=== PATIENT | female | born 1995 | race Caucasian/White ===

== ENCOUNTER 2016-08-20 20:05 | Emergency (ER) | payer OTHER ==
[2016-08-20 20:10] VITALS: BP 120/79; BMI 21.9
--- NOTE | 2016-08-20 20:31 | DR.GENAD ---
HPI - PCP Primary Care Physician: brien Davies HPI Comment HPI Comment: GETTING WORSE. - Complaint/Symptoms Chief Complaint Doctors Comments: LOWER ABDOMINAL PAIN, NAUSEA, VOMITING AND DIARRHEA TIMES ONE DAY. Chief Complaint:: pt states" i'm having lower abd cramps and a headache and i vomited x 1 " - Nurses notes reviewed Nurses Notes Review: Yes - Source History Provided: Patient - Mode of Arrival Mode of Arrival: Ambulatory - Timing Onset of Chief Complaint: 08/20/16 Came on: Suddenly - Duration Duration: Constant Duration: Days - Severity Severity: Moderate PMH - PMH Past Medical History: Yes Past Medical History: Seizures Past Surgical History: No Surgical History: No History - Family History History of Family Medical Conditions: Yes Family Medical History: Diabetes Mellitus, Hypertension - Social History Type of Tobacco Use: Cigarettes Does any household member use tobacco: No Alcohol Use: Occasionally Do you use any recreational Drugs:: No Lives With: Family Lives Where: Home - infectious screening In the last 2 months have you had wt loss of >10#?: NO Have you had fever, night sweats or hemotysis?: No Have you traveled outside the country in the last 6 months?: No Isolation: Standard ROS - Review of Systems Constitutional: Fatigue. negative: Chills, Fever Eyes: No Symptoms Reported ENTM: No Symptoms Reported Respiratoy: No Symptoms Reported Cardiovascular: No Symptoms Reported Gastrointestinal/Abdominal: Abdominal Pain, Nausea, Vomiting Genitourinary: Pain. negative: Dysuria, Frequency, Hematuria Neurological: Weakness Musculoskeletal: Muscle Pain Integumentary: No Symptoms Reported Hematologic/Lymphatic: No Symptoms Reported Endocrine: No Symptoms Reported All Other Systems: Reviewed and Negative PE - Vital Signs Vitals: Temperature 99 F Pulse Rate 91 Respiratory Rate 18 Blood Pressure [Right Arm] 103/59 Blood Pressure [Left Arm] 104/60 Blood Pressure 120/79 O2 Sat by Pulse Oximetry 99 - General Limitations: No Limitations General Appearance: Alert - Head Head Exam: Normal Inspection - Eyes Eye exam: Normal Appearance - ENT ENT Exam: Normal External Ear Exam External Ear Exam: Normal External Inspection TM/Canal Exam: Bilateral Normal Nose Exam: Normal Nose Exam Mouth Exam: Normal Inspection Throat Exam: Normal Inspection - Neck Neck Exam: Trachea Midline - Chest Chest Inspection: Symmetric Chest Wall Rise - Respiratory Respiratory Exam: Normal Lung Sounds Bilat Respiratory Exam: Bilateral Clear to Auscultation - Cardiovascular Cardiovascular Exam: Regular Rate, Normal Rhythm, Normal Heart Sounds - Abdominal Exam Abdominal Exam: Normal Bowel Sounds, Soft, Tenderness Abdominal Tenderness: RLQ, LLQ, Suprapubic, Moderate - Extremities Extremities Exam: Normal Inspection - Back Back Exam: Normal Inspection - Neurologic Neurological Exam: Alert, Oriented X3 - Psychiatric Psychiatric Exam: Anxious - Skin Skin Exam: Normal Color MDM - Differential Diagnosis Differential Diagnosis: ABDOMINAL PAIN, UTI, DEHYDRATION, KIDNEY STONE, BOWEL OBSTRUCTION Course - Treatment Treatment: SEE ORDERS - Education/Counseling Education/Counseling: Patient, Education Educated On: Treatment, Diagnosis, Needs for Follow Up ROR - Labs Reviewed Laboratory Results Reviewed?: Yes Result Diagrams: 08/20/16 20:55 08/20/16 20:55 Laboratory: WBC 7.1 X10^3/uL (3.6-10.0) 08/20/16 20:55 RBC 4.70 X10^6/uL (3.5-5.4) 08/20/16 20:55 Hgb 13.8 g/dL (12.0-16.0) 08/20/16 20:55 Hct 40.2 % (36.0-47.0) 08/20/16 20:55 MCV 85.5 fL (80.0-100.0) 08/20/16 20:55 MCH 29.3 pg (27.0-34.0) 08/20/16 20:55 MCHC 34.3 g/dL (33.0-35.0) 08/20/16 20:55 RDW 12.7 % (11.6-16.5) 08/20/16 20:55 Plt Count 215 X10^3/uL (150.0-450.0) 08/20/16 20:55 MPV 8.0 fL (7.4-11.0) 08/20/16 20:55 Neut % 58.2 % (42.0-75.0) 08/20/16 20:55 Lymph % 36.0 % (21.0-51.0) 08/20/16 20:55 [place] % 4.7 % (0.0-13.0) 08/20/16 20:55 Eos % 0.6 % (0.9-2.9) L 08/20/16 20:55 Baso % 0.5 % (0.2-1.0) 08/20/16 20:55 Neut # 4.1 x10^3/uL (2.2-4.8) 08/20/16 20:55 Lymph # 2.5 X10^3/uL (1.3-2.9) 08/20/16 20:55 [place] # 0.3 x10^3/uL (0.3-0.8) 08/20/16 20:55 Eos # 0.0 x10^3/uL (0.0-0.2) 08/20/16 20:55 Baso # 0.0 X10^3/uL (0.0-0.1) 08/20/16 20:55 Absolute Nucleated RBC 0.1 /100WBC 08/20/16 20:55 Sodium 142 mmol/L (136-145) 08/20/16 20:55 Corrected Sodium TNP 08/20/16 20:55 Potassium 3.4 mmol/L (3.5-5.1) L 08/20/16 20:55 Chloride 105 mmol/L (98-107) 08/20/16 20:55 Carbon Dioxide 25.2 mmol/L (21-32) 08/20/16 20:55 BUN 12 mg/dL (7-18) 08/20/16 20:55 Creatinine 0.87 mg/dL (0.55-1.02) 08/20/16 20:55 Est GFR (MDRD) Af Amer > 60 (>60) 08/20/16 20:55 Est GFR (MDRD) Non-Af > 60 (>60) 08/20/16 20:55 Glucose 91 mg/dL (65-99) 08/20/16 20:55 Calcium 8.6 mg/dL (8.5-10.1) 08/20/16 20:55 Corrected Calcium TNP 08/20/16 20:55 Total Bilirubin 0.30 mg/dL (0.2-1.0) 08/20/16 20:55 AST 13 Units/L (15-37) L 08/20/16 20:55 ALT 28 Units/L (12-78) 08/20/16 20:55 Alkaline Phosphatase 49 Units/L (46-116) 08/20/16 20:55 Total Protein 7.9 g/dL (6.4-8.2) 08/20/16 20:55 Albumin 4.1 g/dL (3.4-5.0) 08/20/16 20:55 Globulin 3.8 g/dL (2.5-4.5) 08/20/16 20:55 Albumin/Globulin Ratio 1.1 Ratio (1.1-2.1) 08/20/16 20:55 Amylase 48 Units/L (25-115) 08/20/16 20:55 Lipase 164 Units/L (73-393) 08/20/16 20:55 HCG, Qual Negative <10 mIU/mL 08/20/16 20:55 Specimen Type Clean catch urine 08/20/16 20:55 Urine Color Yellow (YELLOW) 08/20/16 20:55 Urine Appearance Clear (CLEAR) 08/20/16 20:55 Urine pH 7.0 (5.0 - 8.0) 08/20/16 20:[address] 1.010 (1.000-1.030) 08/20/16 20:55 Urine Protein Negative (NEGATIVE) 08/20/16 20:55 Urine Glucose (UA) Negative (NEGATIVE) 08/20/16 20:55 Urine Ketones Negative (NEGATIVE) 08/20/16 20:55 Urine Occult Blood 2+ (NEGATIVE) 08/20/16 20:55 Urine Nitrite Negative (NEGATIVE) 08/20/16 20:55 Urine Bilirubin Negative (NEGATIVE) 08/20/16 20:55 Urine Urobilinogen Normal (NORMAL) 08/20/16 20:55 Ur Leukocyte Esterase Negative (NEGATIVE) 08/20/16 20:55 Urine RBC 0-3 /HPF (NEGATIVE) 08/20/16 20:55 Urine WBC 0-2 /HPF (NEGATIVE) 08/20/16 20:55 Ur Squamous Epith Cells Rare /HPF (NEGATIVE) 08/20/16 20:55 Urine Bacteria Trace /HPF (NEGATIVE) 08/20/16 20:55 Ur Culture Indicated? No/not indicated 08/20/16 20:55 - XRAY XRAY Interpreted by: Self (REPORT NOT READY. PATIENT WANT TO GO HOME. DISCHARGE WITHOUT REPORT WAS AVAILABLE.) - Diagnosis Discharge Problem: Gastroenteritis Abdominal pain Qualifiers: Abdominal location: generalized Qualified Code(s): R10.84 - Generalized abdominal pain - Discharge Plan Disposition: HOME, SELF-CARE Condition: Stable Prescriptions: Dicyclomine HCl [Bentyl Cap 10 mg] 10 mg PO TID PRN #15 cap PRN Reason: Diphenoxylate/Atropine [Lomotil] 1 tab PO TID PRN #12 tab PRN Reason: Ondansetron HCl [Zofran Tab 4 mg] 4 mg PO Q8H PRN #12 tab PRN Reason: Nausea/Vomiting - Follow ups/Referrals Follow ups/Referrals: Clarissa MESA [Primary Care Provider] - 3 days - Instructions Instructions: Abdominal Pain, Adult, [id number], Viral Gastroenteritis, Adult , [id number] Additional Instructions: RETURN TO ED IF WORSE.
[2016-08-20 21:09] LABS: BILIRUBIN,URINE NEGATIVE (NEGATIVE); BLOOD/HEMOGLOBIN,URINE 2+ (NEGATIVE); GLUCOSE, URINE NEGATIVE (NEGATIVE); KETONES,URINE NEGATIVE (NEGATIVE); LEUKOCYTE ESTERASE ,URINE NEGATIVE (NEGATIVE); NITRITES,URINE NEGATIVE (NEGATIVE); PROTEIN,URINE NEGATIVE (NEGATIVE); UROBILINOGEN,URINE NORMAL (NORMAL)
[2016-08-20 21:10] LABS: BASOPHILS % (AUTO) 0.5 % (0.2-1.0); EOSINOPHILS % (AUTO) 0.6 % (0.9-2.9); HEMATOCRIT 40.2 % (36.0-47.0); HEMOGLOBIN 13.8 g/dL (12.0-16.0); LYMPHOCYTES # (AUTO) 2.5 X10^3/uL (1.3-2.9); MEAN CORPUSCULAR HEMOGLOBIN 29.3 pg (27.0-34.0); MEAN CORPUSCULAR HGB CONC 34.3 g/dL (33.0-35.0); MEAN CORPUSCULAR VOLUME 85.5 fL (80.0-100.0); MONOCYTES # (AUTO) 0.3 x10^3/uL (0.3-0.8); MONOCYTES % (AUTO) 4.7 % (0.0-13.0); NEUTROPHILS # (AUTO) 4.1 x10^3/uL (2.2-4.8); NEUTROPHILS % (AUTO) 58.2 % (42.0-75.0); PLATELET COUNT 215 X10^3/uL (150.0-450.0); RED CELL DISTRIBUTION WIDTH 12.7 % (11.6-16.5); WHITE BLOOD COUNT 7.1 X10^3/uL (3.6-10.0)
[2016-08-20 21:16] LABS: APPEARANCE,URINE CLEAR (CLEAR); BACTERIA,URINE TRACE /HPF (NEGATIVE); COLOR,URINE YELLOW (YELLOW); RBC,URINE 0-3 /HPF (NEGATIVE); SQUAMOUS EPITHELIAL CELL,UR RARE /HPF (NEGATIVE)
[2016-08-20 21:19] LABS: ALANINE AMINOTRANSFERASE 28 Units/L (12-78); ALBUMIN 4.1 g/dL (3.4-5.0); ALKALINE PHOSPHATASE 49 Units/L (46-116); AMYLASE 48 Units/L (25-115); ASPARTATE AMINO TRANSFERASE 13 Units/L (15-37); BLOOD UREA NITROGEN 12 mg/dL (7-18); CALCIUM 8.6 mg/dL (8.5-10.1); CARBON DIOXIDE 25.2 mmol/L (21-32); CHLORIDE 105 mmol/L (98-107); CREATININE 0.87 mg/dL (0.55-1.02); GLUCOSE 91 mg/dL (65-99); LIPASE 164 Units/L (73-393); SODIUM 142 mmol/L (136-145); TOTAL PROTEIN 7.9 g/dL (6.4-8.2); eGFR BLACK RACES > 60 (>60); eGFR NON BLACK RACES > 60 (>60)
[2016-08-20 22:09] LABS: SERUM PREGNANCY TEST, QUAL NEGATIVE <10 mIU/mL
--- NOTE | 2016-08-21 00:16 | RAD ---
Acute abdominal series Indication:Abdominal pain Comparison: None available Findings: The trachea is midline. The cardiac silhouette is unremarkable. The lungs are clear without focal infiltrate or effusion. The bony thorax is unremarkable. Flat and upright evaluation of the abdomen demonstrates a normal bowel gas pattern. The tiny round calcific densities noted lateral to the right L3 transverse process appears to be more inferior and lateral in position than the expected course of the renal fossa however correlation with urinalysis is recommended to exclude nephrolithiasis.. The bony structures are grossly intact. IMPRESSION: 1. No acute cardiopulmonary disease. 2. Calcific density lateral to the right L3 transverse process appears to be more inferior and late ral in position than expected course of the renal fossa however correlation with urinalysis is recom mended to exclude nephrolithiasis. 3. Normal bowel gas pattern. Reported By:
== END 2016-08-20 23:24 | disposition home or self-care (01) ==
LOC: ER 20:14
DX: K52.89 Other specified noninfective gastroenteritis and colitis (principal); R10.84 Generalized abdominal pain; R14.3 Flatulence
CPT/HCPCS: 36415; 74022; 80053; 81001; 82150; 83690; 84703; 85025; 99283

== ENCOUNTER → 2016-11-20 | Outpatient (CLI) | payer OTHER | LOC: RT 16:53 | PROVIDERS: ATTEND Psychiatry & Neurology Neurology | DX: G40.B09 Juvenile myoclonic epilepsy, not intractable, without status epilepticus (principal) | CPT/HCPCS: 95819 ==

== ENCOUNTER → 2016-11-22 | Outpatient (CLI) | payer OTHER | LOC: LAB 10:54 | PROVIDERS: ATTEND Psychiatry & Neurology Neurology | DX: R56.9 Unspecified convulsions (principal) | CPT/HCPCS: 87476 ==

== ENCOUNTER 2017-01-27 15:37 | Emergency (ER) | payer OTHER ==
[2017-01-27 15:42] VITALS: BP 102/69; BMI 21.4
[2017-01-27] MEDS ORDERED: PHENERGAN INJ 25 MG IM ONE (19:26)
[2017-01-27] MEDS ORDERED: PHENERGAN INJ 25 MG ONE (19:31)
--- NOTE | 2017-01-27 19:32 | DR.GENAD ---
HPI - PCP Primary Care Physician: BONITA ESPITIA Comment HPI Comment: Nausea - Complaint/Symptoms Chief Complaint Doctors Comments: Nausea onset early this afternoon. She denies abd. pain. She did not eat anything unusual. She feels better now. Chief Complaint:: VOMITING,CRAMPING,FEVER,HEADACHE - Nurses notes reviewed Nurses Notes Review: Yes - Source History Provided: Patient - Mode of Arrival Mode of Arrival: Ambulatory - Timing Onset of Chief Complaint: 01/27/17 Came on: Suddenly - Duration Duration: Hours - Modifying Factors Worsens:: Nothing Improves:: Nothing PMH - PMH Past Medical History: Yes Past Medical History: Seizures Past Surgical History: No Surgical History: No History - Family History History of Family Medical Conditions: Yes Family Medical History: Diabetes Mellitus, Hypertension - Social History Does any household member use tobacco: No Alcohol Use: None Do you use any recreational Drugs:: No Lives With: Alone Lives Where: Home - infectious screening In the last 2 months have you had wt loss of >10#?: NO Have you had fever, night sweats or hemotysis?: No Have you traveled outside the country in the last 6 months?: No Isolation: Standard ROS - Review of Systems Constitutional: No Symptoms Reported Eyes: No Symptoms Reported ENTM: No Symptoms Reported Respiratoy: No Symptoms Reported Cardiovascular: No Symptoms Reported Gastrointestinal/Abdominal: Nausea, Vomiting (x 1) Genitourinary: No Symptoms Reported Neurological: No Symptoms Reported Musculoskeletal: No Symptoms Reported Integumentary: No Symptoms Reported Hematologic/Lymphatic: No Symptoms Reported Endocrine: No Symptoms Reported Psychiatric: No Symptoms Reported All Other Systems: Reviewed and Negative PE - Vital Signs Vitals: Temperature 98.2 F Pulse Rate 84 Respiratory Rate 20 Blood Pressure [Right Arm] 103/59 Blood Pressure [Left Arm] 104/60 Blood Pressure 102/69 O2 Sat by Pulse Oximetry 100 - General Limitations: No Limitations General Appearance: Alert, In No Apparent Distress - Head Head Exam: Normal Inspection - Eyes Eye exam: Normal Appearance - ENT ENT Exam: Normal Exam External Ear Exam: Normal External Inspection TM/Canal Exam: Bilateral Normal Nose Exam: Normal Nose Exam Mouth Exam: Normal Inspection Throat Exam: Normal Inspection - Neck Neck Exam: Normal Inspection - Chest Chest Inspection: Normal Inspection - Respiratory Respiratory Exam: Normal Lung Sounds Bilat Respiratory Exam: Bilateral Clear to Auscultation - Cardiovascular Cardiovascular Exam: Regular Rate, Normal Rhythm - Abdominal Exam Abdominal Exam: Normal Inspection, Normal Bowel Sounds, Soft - Extremities Extremities Exam: Normal Inspection - Back Back Exam: Normal Inspection - Neurologic Neurological Exam: Alert, Oriented X3 - Psychiatric Psychiatric Exam: Normal Affect, Normal Mood - Skin Skin Exam: Warm, Dry, Intact, Normal Color Course - Reevaluation 1st: Resolved - Diagnosis Discharge Problem: Nausea & vomiting - Discharge Plan Disposition: HOME, SELF-CARE Condition: Stable - Follow ups/Referrals Follow ups/Referrals: Clarissa MESA [Primary Care Provider] - 3 days - Instructions
== END 2017-01-27 19:40 | disposition home or self-care (01) ==
LOC: ER 15:52
DX: R11.2 Nausea with vomiting, unspecified (principal)
CPT/HCPCS: 99281; 99282; J2550

== ENCOUNTER 2017-06-27 18:00 | Emergency (ER) | payer OTHER ==
[2017-06-27 18:07] VITALS: BP 101/62; BMI 22.6
--- NOTE | 2017-06-27 20:19 | DR.GENAD ---
HPI - PCP Primary Care Physician: brien - Complaint/Symptoms Chief Complaint:: patient stated she has been having stomach pain all week the vomiting started this morning with the fever. - Nurses notes reviewed Nurses Notes Review: Yes - Source History Provided: Patient - Mode of Arrival Mode of Arrival: Ambulatory - Timing Onset of Chief Complaint: 06/27/17 Came on: Suddenly - Duration Duration: Constant Duration: Days - Severity Severity: Moderate PMH - PMH Past Medical History: Yes Past Medical History: Seizures Past Surgical History: No Surgical History: No History - Family History History of Family Medical Conditions: Yes Family Medical History: Diabetes Mellitus, Hypertension - Social History Does patient currently use any type of tobacco product: No Have you used tobacco products in the last 12 months: No Type of Tobacco Use: None Does any household member use tobacco: No Alcohol Use: None Do you use any recreational Drugs:: No Lives With: Family Lives Where: Home - infectious screening In the last 2 months have you had wt loss of >10#?: NO Have you had fever, night sweats or hemotysis?: No Have you traveled outside the country in the last 6 months?: No Isolation: Standard ROS - Review of Systems Constitutional: No Symptoms Reported Eyes: No Symptoms Reported ENTM: No Symptoms Reported Respiratoy: No Symptoms Reported Cardiovascular: No Symptoms Reported Gastrointestinal/Abdominal: No Symptoms Reported Genitourinary: No Symptoms Reported Neurological: No Symptoms Reported Musculoskeletal: No Symptoms Reported Integumentary: No Symptoms Reported Hematologic/Lymphatic: No Symptoms Reported Endocrine: No Symptoms Reported All Other Systems: Reviewed and Negative PE - Vital Signs Vitals: Temperature 99.2 F Pulse Rate 70 Respiratory Rate 16 Blood Pressure [Right Arm] 103/59 Blood Pressure [Left Arm] 104/60 Blood Pressure 101/62 O2 Sat by Pulse Oximetry 99 - General Limitations: No Limitations General Appearance: Alert - Head Head Exam: Normal Inspection - Eyes Eye exam: Normal Appearance - ENT ENT Exam: Normal External Ear Exam External Ear Exam: Normal External Inspection TM/Canal Exam: Bilateral Normal Nose Exam: Normal Nose Exam Mouth Exam: Normal Inspection Throat Exam: Normal Inspection - Neck Neck Exam: Normal Inspection - Chest Chest Inspection: Symmetric Chest Wall Rise - Respiratory Respiratory Exam: Normal Lung Sounds Bilat Respiratory Exam: Bilateral Clear to Auscultation - Cardiovascular Cardiovascular Exam: Regular Rate, Normal Rhythm, Normal Heart Sounds - Abdominal Exam Abdominal Exam: Normal Bowel Sounds, Soft, Tenderness - Extremities Extremities Exam: Normal Inspection - Back Back Exam: Normal Inspection - Neurologic Neurological Exam: Alert, Oriented X3 - Skin Skin Exam: Normal Color ROR - Labs Reviewed Laboratory: Influenza Type A (PCR) Negative (NEGATIVE) 06/27/17 19:32 Influenza Type B (PCR) Negative (NEGATIVE) 06/27/17 19:32 S. pyogenes (TEM-PCR) Not detected (NOT DETECT) 06/27/17 19:32 - Discharge Plan Condition: Stable - Follow ups/Referrals Follow ups/Referrals: Clarissa MESA [Primary Care Provider] - 1 day - Instructions Instructions: Abdominal Pain, Adult, [id number], Nausea and Vomiting, Adult, [id number]
== END 2017-06-27 20:36 | disposition home or self-care (01) ==
LOC: ER 18:10
DX: R10.84 Generalized abdominal pain (principal); R11.10 Vomiting, unspecified; R50.9 Fever, unspecified
CPT/HCPCS: 87502; 87651; 99282

== ENCOUNTER 2017-07-10 17:52 | Emergency (ER) | payer OTHER ==
[2017-07-10 18:12] VITALS: BMI 22.6
--- NOTE | 2017-07-10 18:20 | DR.CP ---
HPI - Time Seen Time seen: 18:10 - PCP Primary Care Physician: BONITA BAINS - HPI Comment HPI Comment: WAS PLAYING WITH CHILD AND STARTED TO HAVE MID CHEST PAIN GOING INTO LEFT CHEST WITH SOB. PAIN DECREASING BUT PRESENT IN ED. - Complaint Chief Complaint Doctor Comments: CHEST PAIN ONE HOUR AGO. Chief Complaint:: PT C/O HAVING CP THAT STARTED ABOUT 30 MIN AGO,, STARTED TO MID AND NOW IT RADITATES TO THE LEFT .. SLIGHT SOB,, PT HAS HX OF CHF IN FAMILY. - Reviewed Nurses Notes Review: Yes - Source History Provided: Patient - Mode of Arrival Mode of Arrival: In Arms - Timing Onset of Chief Complaint: 07/10/17 Came on: Suddenly Pain: Present Now - Duration Duration: Constant Duration: Hours - Location Location of Chest Pain: Left (MID CHEST PAIN RADIATING TO LT ARM.), Chest Chest Pain Radiation Location: None (RADIATES TO LEFT CHEST.) - Context Onset: With light exertion Cardiac Risk Factors: None PE Risk Factors: None History of: None Prehospital Care: None - Quality Quality: Sharp - Severity Severity: Moderate - Modifying Factors Worsens: Nothing Impoves: Nothing - Associated Signs and Symptoms Associated Signs and Symptoms: Shortness of Breath PMH - PMH Past Medical History: Yes Past Medical History: Seizures Past Surgical History: No Surgical History: No History - Family History History of Family Medical Conditions: Yes Family Medical History: Diabetes Mellitus Family Medical History Comment: CHF, - Social History Does patient currently use any type of tobacco product: No Have you used tobacco products in the last 12 months: No Type of Tobacco Use: None Does any household member use tobacco: No Alcohol Use: None Do you use any recreational Drugs:: No Lives With: Family Lives Where: Home - infectious screening In the last 2 months have you had wt loss of >10#?: NO Have you had fever, night sweats or hemotysis?: No Have you traveled outside the country in the last 6 months?: No Isolation: Standard ROS - Review of Systems Constitutional: No Symptoms Reported Eyes: No Symptoms Reported ENTM: No Symptoms Reported Respiratoy: Short of Breath Cardiovascular: Chest Pain Gastrointestinal/Abdominal: No Symptoms Reported Genitourinary: No Symptoms Reported Neurological: No Symptoms Reported Musculoskeletal: No Symptoms Reported Integumentary: No Symptoms Reported Hematologic/Lymphatic: No Symptoms Reported Endocrine: No Symptoms Reported All Other Systems: Reviewed and Negative PE - Vitals Vitals: Temperature 97.7 F Pulse Rate [Left Brachial] 78 Pulse Rate 74 Respiratory Rate 18 Blood Pressure [Right Arm] 103/59 Blood Pressure [Left Arm] 120/70 Blood Pressure 124/74 O2 Sat by Pulse Oximetry 100 - General Limitations: No Limitations General Appearance: Alert - Head Head Exam: Normal Inspection - Eyes Eye exam: Normal Appearance - ENT ENT Exam: Normal External Ear Exam - Chest Chest Inspection: Symmetric Chest Wall Rise - Respiratory Respiratory Exam: Normal Lung Sounds Bilat Respiratory Exam: Bilateral Clear to Auscultation - Cardiovascular Cardiovascular Exam: Regular Rate, Normal Rhythm, Normal Heart Sounds - Abdominal Exam Abdominal Exam: Normal Bowel Sounds, Soft. negative: Tenderness - Extremities Extremities Exam: Normal Inspection - Back Back Exam: Normal Inspection - Neurologic Neurological Exam: Alert, Oriented X3 - Psychiatric Psychiatric Exam: Normal Affect, Normal Mood - Skin Skin Exam: Normal Color MDM - Differential Diagnosis Differential Diagnosis: Chest Wall Pain, Costochondritis, Esophageal Reflux/ Spasm, Gastritis, Myocardial Infarction, Pericarditis, Pancreatitis, Pneumonia, Pneumothorax Course - Treatment Treatment: SEE ORDERS. - Education/Counseling Education/Counseling: Patient, Education Educated On: Diagnosis, Needs for Follow Up ROR - Labs Reviewed Laboratory Results Reviewed?: Yes Result Diagrams: 07/10/17 18:30 07/10/17 18:30 Laboratory: WBC 5.9 X10^3/uL (3.6-10.0) 07/10/17 18:30 RBC 4.60 X10^6/uL (3.5-5.4) 07/10/17 18:30 Hgb 14.2 g/dL (12.0-16.0) 07/10/17 18:30 Hct 40.0 % (36.0-47.0) 07/10/17 18:30 MCV 87.0 fL (80.0-100.0) 07/10/17 18:30 MCH 30.9 pg (27.0-34.0) 07/10/17 18:30 MCHC 35.5 g/dL (33.0-35.0) H 07/10/17 18:30 RDW 12.7 % (11.6-16.5) 07/10/17 18:30 Plt Count 226 X10^3/uL (150.0-450.0) 07/10/17 18:30 MPV 8.1 fL (7.4-11.0) 07/10/17 18:30 Neut % 59.4 % (42.0-75.0) 07/10/17 18: Lymph % 33.2 % (21.0-51.0) 07/10/17 18:30 [place] % 5.8 % (0.0-13.0) 07/10/17 18: Eos % 1.2 % (0.9-2.9) 07/10/17: Baso % 0.4 % (0.2-1.0) 07/10/17:30 Neut # 3.5 x10^3/uL (2.2-4.8) 07/10/17: Lymph # 2.0 X10^3/uL (1.3-2.9) 07/10/17 [place] # 0.3 x10^3/uL (0.3-0.8) 07/10/17: Eos # 0.1 x10^3/uL (0.0-0.2) 07/10/17 18: Baso # 0.0 X10^3/uL (0.0-0.1) 07/10/17: Absolute Nucleated RBC 0.1 /100WBC 07/10/17 18:30 Sodium 141 mmol/L (136-145) 07/10/17 18:30 Corrected Sodium TNP 07/10/17 18:30 Potassium 4.1 mmol/L (3.5-5.1) 07/10/17:30 Chloride 105 mmol/L (98-107) 07/10/17 18:30 Carbon Dioxide 29.0 mmol/L (21-32) 07/10/17 18:30 BUN 9 mg/dL (7-18) 07/10/17:30 Creatinine 0.85 mg/dL (0.55-1.02) 07/10/17 18:30 Est GFR (MDRD) Af Amer > 60 (>60) 07/10/17 18:30 Est GFR (MDRD) Non-Af > 60 (>60) 07/10/17 18:30 Glucose 100 mg/dL (65-99) H 07/10/17 18: Calcium 9.0 mg/dL (8.5-10.1) 07/10/17 18:30 Corrected Calcium TNP 07/10/17 18:30 Total Bilirubin 0.20 mg/dL (0.2-1.0) 07/10/17 18:30 AST 13 Units/L (15-37) L 07/10/17 18:30 ALT 22 Units/L (12-78) 07/10/17 18:30 Alkaline Phosphatase 58 Units/L (46-116) 07/10/17 18:30 Creatine Kinase 50 Units/L (26-192) 07/10/17 18:30 CK-MB (CK-2) < 1.0 ng/mL (0-4.0) 07/10/17 18:30 CK/CKMB % Calc 2.0 % (<4) 07/10/17 18:30 Troponin I < 0.02 ng/mL (0-1.5) 07/10/17 18:30 Total Protein 7.6 g/dL (6.4-8.2) 07/10/17 18:30 Albumin 3.9 g/dL (3.4-5.0) 07/10/17 18:30 Globulin 3.7 g/dL (2.5-4.5) 07/10/17 18:30 Albumin/Globulin Ratio 1.1 Ratio (1.1-2.1) 07/10/17 18:30 HCG, Qual Negative <10 mIU/mL 07/10/17 18:30 - XRAY XRAY Interpreted by: Radiologist XRAY Findings: REPORT DISCUSS WITH PATIENT. - EKG Rhythm: NSR (EKG NOTED) - Diagnosis Discharge Problem: Chest pain Qualifiers: Chest pain type: unspecified Qualified Code(s): R07.9 - Chest pain, unspecified - Discharge Plan Disposition: 01 HOME, SELF-CARE Condition: Stable - Follow ups/Referrals Follow ups/Referrals: Clarissa MESA [Primary Care Provider] - 07/11/17 - Instructions Instructions: Chest Pain Observation Additional Instructions: RETURN TO ED IF WORSE.
[2017-07-10 18:48] LABS: BASOPHILS % (AUTO) 0.4 % (0.2-1.0); EOSINOPHILS # (AUTO) 0.1 x10^3/uL (0.0-0.2); EOSINOPHILS % (AUTO) 1.2 % (0.9-2.9); HEMOGLOBIN 14.2 g/dL (12.0-16.0); LYMPHOCYTES % (AUTO) 33.2 % (21.0-51.0); MEAN CORPUSCULAR HEMOGLOBIN 30.9 pg (27.0-34.0); MEAN CORPUSCULAR HGB CONC 35.5 g/dL (33.0-35.0); MEAN PLATELET VOLUME 8.1 fL (7.4-11.0); MONOCYTES # (AUTO) 0.3 x10^3/uL (0.3-0.8); MONOCYTES % (AUTO) 5.8 % (0.0-13.0); NEUTROPHILS # (AUTO) 3.5 x10^3/uL (2.2-4.8); NEUTROPHILS % (AUTO) 59.4 % (42.0-75.0); PLATELET COUNT 226 X10^3/uL (150.0-450.0); RED CELL DISTRIBUTION WIDTH 12.7 % (11.6-16.5); WHITE BLOOD COUNT 5.9 X10^3/uL (3.6-10.0)
[2017-07-10 18:54] LABS: SERUM PREGNANCY TEST, QUAL NEGATIVE <10 mIU/mL
[2017-07-10 19:10] LABS: ALANINE AMINOTRANSFERASE 22 Units/L (12-78); ALBUMIN 3.9 g/dL (3.4-5.0); ALKALINE PHOSPHATASE 58 Units/L (46-116); ASPARTATE AMINO TRANSFERASE 13 Units/L (15-37); BLOOD UREA NITROGEN 9 mg/dL (7-18); CHLORIDE 105 mmol/L (98-107); CREATINE KINASE 50 Units/L (26-192); CREATINE KINASE MB < 1.0 ng/mL (0-4.0); CREATININE 0.85 mg/dL (0.55-1.02); SODIUM 141 mmol/L (136-145); TOTAL PROTEIN 7.6 g/dL (6.4-8.2); TROPONIN I < 0.02 ng/mL (0-1.5); eGFR BLACK RACES > 60 (>60); eGFR NON BLACK RACES > 60 (>60)
--- NOTE | 2017-07-10 19:25 | RAD ---
HISTORY: Chest pain and shortness of breath. Study: Portable chest. Comparison: None. Findings: The trachea is midline. The cardiac silhouette is unremarkable. No obvious focal consolidation, ple ural effusion, or pneumothorax. The bony thorax is unremarkable. IMPRESSION: No acute cardiopulmonary disease. Reported By:
[2017-07-10 19:28] VITALS: BP 120/70
== END 2017-07-10 19:26 | disposition home or self-care (01) ==
LOC: ER 18:05
DX: R07.89 Other chest pain (principal)
CPT/HCPCS: 36415; 71045; 80053; 82550; 82553; 84484; 84703; 85025; 93005; 93010; 99283

== ENCOUNTER 2018-10-16 06:30 | Inpatient (IN) ==
[~2018-10-16 06:30] MED LIST: D5LR 1L W PITOCIN 10 UNITS/L 10 UNITS/1,000 ML BAG IV ONE; FENTANYL INJ 100 mcg ONE; LR 1000 ML IV 1,000 ML ONE
[2018-10-16] MEDS ORDERED: D5 1/2 NS 1L W PITOCIN 20 UNITS/L 20 UNITS/1,000 ML BAG IV ONE (06:31)
[2018-10-16] MEDS ORDERED: PITOCIN ONE (06:31)
[2018-10-16] MEDS ORDERED: D5 1/2 NS 1000 ML 1,000 ML ONE (06:31)
[2018-10-16] MEDS ORDERED: NAROPIN EPIDURAL 0.2% + FENTANYL 90MCG 60 ML EPI ONE (06:31)
[2018-10-16] MEDS ORDERED: D5 1/2 NS 1000 ML 1,000 ML IV SCH (06:51)
[2018-10-16] MEDS ORDERED: NUBAIN INJ 200 MG VIAL MULTIDOSE IVP PRN (06:51)
[2018-10-16] MEDS ORDERED: PHENERGAN INJ 25 MG IM PRN ×2 (06:51→14:56)
[2018-10-16] MEDS ORDERED: MORPHINE SULFATE INJ 2 MG INJ IVP PRN (06:51)
[2018-10-16] MEDS ORDERED: REGLAN INJ 10 MG VIAL IVP PRN (06:51)
[2018-10-16] MEDS ORDERED: D5LR 1L W PITOCIN 10 UNITS/L 10 UNITS/1,000 ML BAG IV PRN (06:51)
[2018-10-16] MEDS ORDERED: PITOCIN IVP ONE (06:51)
--- NOTE | 2018-10-16 07:09 | DR.OB ---
OB Quick Note - Assessment/Plan Assessment/Plan: L&D 10/16/18 at 7:00am S-No complaint. O-Afebrile,VSS CEK=385 with good LTV, +accel, no decel. CTX=irritability CVX=2-3cm/50%/-1/VTX AROM with clear fluid. IUPC and FSE placed. No genital lesions. A-IUP at 39 0/7 weeks for induction Seizures P-Begin pitocin induction Anticipate
[2018-10-16] MEDS ORDERED: LR 1000 ML IV 1,000 ML ONE (10:34)
[2018-10-16] MEDS ORDERED: EPHEDRINE SULFATE INJ ONE (10:34)
--- NOTE | 2018-10-16 11:45 | DR.OB ---
OB Quick Note - Assessment/Plan Assessment/Plan: L&D 10/16/18 at 11:40am Pitocin=18mu/min. S-No complaint. s/p epidural. O-Afebrile,VSS SVK=159 with good LTV, +accel, no decel. CTX=q 1 1/2 to 3 min., about 50-65mmHg CVX=4cm/75%/0/VTX A-IUP at 39 0/7 weeks for induction Seizures P-Cont. pitocin induction Anticipate
[2018-10-16] MEDS: D5 1/2 NS 1000 ML 1,000 ML with PITOCIN 20 UNITS IV SCH ×4 (15:19→23:39)
[2018-10-16] MEDS ORDERED: AMBIEN PO PRN (15:59)
[2018-10-16] MEDS ORDERED: DERMOPLAST SPRAY TOP PRN (15:59)
[2018-10-16] MEDS ORDERED: ADACEL or BOOSTRIX TDaP VACCINE IM ONE (15:59)
[2018-10-16] MEDS ORDERED: MILK OF MAGNESIA PO PRN (15:59)
--- NOTE | 2018-10-16 16:15 | DR.OB ---
OB Quick Note - Assessment/Plan Assessment/Plan: Delivery Note TOUR COORDINATOR 10/16/18 at 2:46pm Patient complete and pushing. Head delivered over intact perineum. Nuchal cord x 1 reduced. Nose and mouth bulb suctioned. Body delivered over intact perineum. Cord clamped x 2 and cut. Infant handed to attendant. Cord sent for gases. Placenta delivered spontaneously / intact / 3 vessel cord. No CVX / vaginal / perineal tears. Viable female infant, VTX/OA, wt=6'10" and 8/9, stable to NBN. Mother stable to RR. NKP=150up.
[2018-10-16] MEDS: ZANTAC PO SCH ×2 (16:41→21:14)
[2018-10-16] MEDS: KEPPRA TAB 500 MG PO SCH (21:13)
[2018-10-16] MEDS: MOTRIN TAB 800 MG PO PRN (23:40)
[2018-10-17 04:53] LABS: HEMOGLOBIN 10.2 g/dL (12.0-16.0)
[2018-10-17] MEDS: D5 1/2 NS 1000 ML 1,000 ML with PITOCIN 20 UNITS IV SCH ×4 (06:41→22:00)
[2018-10-17] MEDS: ZANTAC PO SCH ×3 (08:27→21:00)
[2018-10-17] MEDS: KEPPRA TAB 500 MG PO SCH ×2 (08:27→21:00)
[2018-10-17] MEDS: MOTRIN TAB 800 MG PO PRN ×2 (08:27→21:00)
[2018-10-17] MEDS: PRENATAL PLUS PO SCH (08:27)
[2018-10-18 08:05] VITALS: BP 107/73
[2018-10-18] MEDS: PRENATAL PLUS PO SCH (08:46)
[2018-10-18] MEDS: KEPPRA TAB 500 MG PO SCH (08:46)
[2018-10-18] MEDS: ZANTAC PO SCH (08:46)
== END 2018-10-18 09:24 | disposition home or self-care (01) | DRG 807 ==
LOC: LD 06:38 → MED/SURG 16:04
PROVIDERS: ADMIT Specialist; ATTEND Specialist
DX: Z01.818 Encounter for other preprocedural examination; O99.353 Diseases of the nervous system complicating pregnancy, third trimester; Z23 Encounter for immunization; Z3A.39 39 weeks gestation of pregnancy; O47.1 False labor at or after 37 completed weeks of gestation; Z37.0 Single live birth; Z87.42 Personal history of other diseases of the female genital tract
CPT/HCPCS: 36415; 59409; 80048; 80307; 81001; 85014; 85018; 85025; 86592; 86850; 86900; 86901; 90715; 99284; A4216; A4222; S0197; G0434; J2590; J3010; J3490; J7120; S5010